=== PATIENT | female | born 1960 | race African-American/Black ===

== ENCOUNTER 2021-03-10 15:52 | Outpatient (REF) | payer OTHER, SELFPAY ==
--- NOTE | ~2021-03-10 | US_ITS ---
EXAMINATION: PELVIC ULTRASOUND CLINICAL INFORMATION: Pelvic pain COMPARISON: None TECHNIQUE: Transabdominal pelvic ultrasound. FINDINGS: The uterus is retroverted and measures 6.2 x 2.9 x 5 cm in dimension. There is a 4.1 x 2.8 x 3.6 cm calcified central uterine lesion probably representing a fibroid. This is slightly decreased in size from 4.4 x 3.6 x 4.4 cm on previous exam. There is a 1 x 0.7 x 1 cm hypoechoic lesion in the right anterior uterine body suggestive of a fibroid that is stable. The larger fibroid obscures the endometrium. The visualized endometrium is slightly thickened measuring 0.6 cm. The cervix is normal appearing. The right ovary is normal-appearing and measures 2.1 x 1.3 x 1.5 cm. The left ovary measures 2.7 x 1.1 x 1.5 cm. There is a small calcification in the left ovary. There is no fluid in the pelvis. US/US pelvic and transvaginal IMPRESSION: Uterine fibroids. The larger central fibroid obscures the endometrium. The visualized endometrium appears slightly thickened for a postmenopausal patient measuring 0.6 cm. Possible small calcification in the left ovary otherwise the ovaries are normal-appearing.
== END 2021-03-10 15:53 | disposition home or self-care (01) ==
LOC: HO.US 15:52
PROVIDERS: Visit Provider Advanced Practice Midwife
DX: R10.2 Pelvic and perineal pain (principal)
CPT/HCPCS: 76830; 76856

== ENCOUNTER 2021-07-28 10:35 | Outpatient (REF) | payer OTHER, SELFPAY ==
--- NOTE | ~2021-07-28 | MM_ITS ---
EXAMINATION: MM DIAGNOSTIC DIGITAL BREAST TOMOSYNTHESIS, BILATERAL US DIAGNOSTIC ULTRASOUND BREAST, LEFT CLINICAL INFORMATION: Due for yearly. Patient notes unilateral left nipple discharge for many decades (since teenage years), only present as a white drop with squeezing. No spontaneous discharge. No palpable mass. The lifetime risk of breast cancer based on the Tyrer-Cuzick Model is 7%. COMPARISON: Mammography: 08/03/2017, 05/29/2016, 02/04/2015 TECHNIQUE: Digital breast tomosynthesis is performed in both the craniocaudal and mediolateral oblique views along with computer-aided detection (CAD). Synthesized 2D images are generated from the tomosynthesis. Ultrasound left breast is targeted to the retroareolar and periareolar region. Grayscale imaging and color Doppler are performed without and with harmonics. FINDINGS: There are scattered areas of fibroglandular density (ACR BI-RADS breast composition Category b). Parenchymal pattern is similar to prior exams. There is no developing density or interval mass or architectural abnormality. There is no focal interval duct ectasia. No abnormal calcifications. The axilla and skin contours are unremarkable. No significant changes. Ultrasound left breast demonstrates no cystic or solid mass, architectural abnormality, or focal duct ectasia. No skin thickening or edema tracking in soft tissue planes. No hyperemia. Results are discussed with the patient at time of visit. Imaging today is unremarkable. The left discharge is unlikely to represent a significant finding given the multi-decade chronicity and scant amount, white drop only present with intentional squeezing. MM/MM tomosynthesis diagnostic BI IMPRESSION: 1. No mammographic evidence of malignancy. 2. Unremarkable targeted left breast ultrasound. ASSESSMENT: BI-RADS 1: Negative RECOMMENDATION: 1. Patient should be managed based on the clinical impression. If clinically indicated, further evaluation may be considered with surgical consult. 2. Otherwise, routine annual screening mammography. This patient's information was entered into a reminder system with a target due date for their next mammogram.
== END 2021-07-28 10:36 | disposition home or self-care (01) ==
LOC: HO.MAMMO 10:35
PROVIDERS: Visit Provider Advanced Practice Midwife
DX: O92.6 Galactorrhea (principal)
CPT/HCPCS: 76642; 77062; 77066

== ENCOUNTER 2022-07-28 12:25 | Emergency (ER) | payer OTHER, SELFPAY ==
--- NOTE | ~2022-07-28 | XR_ITS ---
EXAMINATION: XR KNEE, LEFT CLINICAL INFORMATION: Pain and swelling left knee. COMPARISON: None TECHNIQUE: Four views of the left knee. FINDINGS: There is mild patella lorena with an Insall-Salvati ratio of 1.4, at the upper limits of normal. There is prepatellar soft tissue swelling. Bones and soft tissues are otherwise normal. No fracture or joint effusion. Joint spaces are well maintained. No abnormal soft tissue calcification. XR/XR knee LT 4V IMPRESSION: Mild patella lorena and prepatellar soft tissue swelling.
--- NOTE | 2022-07-28 12:35 | ED.LOWEXIN ---
HPI - Extremity Injury (Lower) General Chief Complaint: Extremity Problem Stated Complaint: KNEE PAIN Time Seen by Provider: 07/28/22 12:35 Source: patient and EMS Limitations: no limitations History of Present Illness HPI Narrative: 61 yo female presents to the ER from home via EMS with complaints of a painful and swollen left knee that started on the night of 07/25. She states it started as a slight discomfort and it has worsened each day. She denies any injury or trauma. Today she woke up and was unable to put any weight on her left leg or bend it due to the pain and swelling. She states it is warm but not red. No history of gout. No history of current IVDA. No fever or chills. MD complaint: knee injury Onset (ago): day(s) (4) Injury: Left: knee Type of Injury: unknown Place: home Severity: severe Severity scale (1-10): 10 Relieving factors: immobilization and rest Exacerbating factors: weight bearing, movement and palpation Associated symptoms: swelling and unable to bear weight Other symptoms: none Related Data Previous Rx's Medication Instructions Recorded oxycodone 5 mg tablet 5 mg PO Q6H PRN severe pain (scale 07/28/22 score 7-10) #8 tabs prednisone 50 mg tablet 50 mg PO DAILY #6 tabs 07/28/22 Allergies Allergy/AdvReac Type Severity Reaction Status Date / Time No Known Allergies Allergy Unverified 08/15/20 15:43 Review of Systems Review of Systems: Constitutional: No Fever, No Chills ENT/Mouth: No sore throat, No Rhinorrhea, No Swallowing Difficulty Cardiovascular: No Chest Pain, No SOB, No Orthopnea, + Edema Respiratory: No Cough, No Sputum, No Wheezing, No dyspnea Gastrointestinal: No Nausea, No Vomiting, No abdominal Pain Musculoskeletal: + joint pain, No Myalgias Skin: No Skin Lesions, No rash Neuro: No Weakness, No Numbness, No Dizziness, No Headache Psych: + Anxiety/Panic, No Depression Heme/Lymph: No Bruising, No Lymphadenopathy PMFSH Social History Social History Advance Directives: No Advance Directives Information Provided: Yes Physical Exam Vital Signs: Vital Signs: Last Vital Signs Temp 98.7 F 07/28/22 16:31 Pulse 91 07/28/22 16:31 Resp 18 07/28/22 16:31 BP 148/96 H 07/28/22 16:31 Pulse Ox 98 07/28/22 16:31 O2 Del Method 07/28/22 16:31 BMI result Body Mass Index 32.1 Appearance: Alert. Oriented X3. Patient appears uncomfortable. HEENT: normal inspection CVS: Normal heart rate and rhythm. Pulses normal. Respiratory: No respiratory distress. Skin: Skin warm and dry. Normal skin color. Normal skin turgor. No rashes. Extremities: Left knee with moderate generalized swelling, with diffuse tenderness. Joint is warm to touch but not hot. No erythema. Knee held in extension, extreme pain with any effort in flexing. Neurovascularly intact distally. Neuro: Oriented X 3. No motor deficit. No sensory deficit. Unable to test gait due to pain Course Course Course Narrative: 61-year-old female with history of HIV on current HAART (reported CD4 in the 300s and undetectable viral load) who presents to the ER with 4 days of atraumatic left-sided knee pain and swelling. Unable to ambulate. Unable to flex. Concern for possible joint infection, possible gout. X-ray and lab workup is pending. Pain meds ordered, will reassess. Reevaluation(s) Reevaluation #1: Lab workup is showing a WBC of 5.5. Her inflammatory markers are mildly elevated. Uric acid 8. X-ray today is not showing any evidence of a joint effusion. Dr. Owen ultrasound of the knee at the bedside without any visible pocket of fluid to drain. She is recommending orthopedic evaluation at the bedside. Orthopedic PA has been texted, awaiting response. Reevaluation #2: Ortho came to the bedside right away and evaluated the patient. The left knee was able to be aspirated with a small amount of clear yellow fluid expressed. Does not appear to be infected. Orthopedics recommending compression and steroids for probable bursitis. CAR wrap applied and crutches provided. Patient is stable for d/c home with pain control and steroids. She will follow up with Orthopedics in 2-3 days. MDM - Extremity Injury (Lower) Lab Data Result diagrams: 07/28/22 13:00 07/28/22 13:00 Labs: Lab Results 07/28/22 07/28/22 07/28/22 Range/Units 13:00 13:00 13:00 WBC 5.5 (4.8-10.8) X10*3/uL RBC 4.53 (4.20-5.50) X10*6/uL Hgb 13.6 (12.0-16.0) g/dl Hct 41.1 (37.0-47.0) % MCV 90.7 (80.0-98.0) fL MCH 30.0 (27.0-33.0) pg MCHC 33.1 (31.0-35.0) g/dl RDW 15.8 (11.0-16.0) % Plt Count 78 L (160-400) X10*3/uL MPV 10.1 (9.4-12.3) fL Immature Gran % (Auto) 0.4 (0.0-0.4) % Neut % (Auto) 75.9 H (45-73) % Lymph % (Auto) 15.9 L (20-40) % [place] % (Auto) 7.1 (2-11) % Eos % (Auto) 0.5 (0-4) % Baso % (Auto) 0.2 (0-2) % Lymph # (Auto) 0.9 L (1.2-4.9) X10*3/uL [place] # (Auto) 0.4 (0.1-1.2) X10*3/uL Eos # (Auto) 0.0 (0.0-0.4) X10*3/uL Baso # (Auto) 0.0 (0.0-0.2) X10*3/uL Abs Immat Gran (auto) 0.02 (0.00-0.03) X10*3/uL Absolute Neuts (auto) 4.2 (2.0-8.3) x10*3/uL Absolute Nucleated RBC 0.000 (0.0-0.012) X10*3/uL Nucleated RBC % (auto) 0.0 (0.0-0.2) /100WBC ESR 59 H (0-20) MM/HR PT (10.0-13.1) SEC INR (0.9-1.1) APTT (26.0-36.4) SEC Sodium 140 (135-145) mmol/L Potassium 3.5 (3.3-5.1) mmol/L Chloride 102 (96-108) mmol/L Carbon Dioxide 26 (22-29) mmol/L Anion Gap 16 (12-20) BUN 23 H (9-16) mg/dL Creatinine 1.08 (0.5-1.4) mg/dL Estim Creat Clear Calc 57.0 Estimated GFR 52 Random Glucose 133 H (60-115) mg/dL Uric Acid 8.0 H (2.4-5.7) mg/dL Calcium 9.4 (8.4-10.2) mg/dL Total Bilirubin 0.5 (0.0-1.0) mg/dL Direct Bilirubin 0.2 (0.0-0.5) mg/dL AST 30 (5-31) U/L ALT 63 H (0-31) U/L Alkaline Phosphatase 96 (39-117) U/L C-Reactive Protein 3.45 H (< or = 0.50) mg/dL Total Protein 8.9 H (6.5-8.0) g/dL Albumin 4.1 (3.5-5.0) g/dL 07/28/22 Range/Units 13:00 WBC (4.8-10.8) X10*3/uL RBC (4.20-5.50) X10*6/uL Hgb (12.0-16.0) g/dl Hct (37.0-47.0) % MCV (80.0-98.0) fL MCH (27.0-33.0) pg MCHC (31.0-35.0) g/dl RDW (11.0-16.0) % Plt Count (160-400) X10*3/uL MPV (9.4-12.3) fL Immature Gran % (Auto) (0.0-0.4) % Neut % (Auto) (45-73) % Lymph % (Auto) (20-40) % [place] % (Auto) (2-11) % Eos % (Auto) (0-4) % Baso % (Auto) (0-2) % Lymph # (Auto) (1.2-4.9) X10*3/uL [place] # (Auto) (0.1-1.2) X10*3/uL Eos # (Auto) (0.0-0.4) X10*3/uL Baso # (Auto) (0.0-0.2) X10*3/uL Abs Immat Gran (auto) (0.00-0.03) X10*3/uL Absolute Neuts (auto) (2.0-8.3) x10*3/uL Absolute Nucleated RBC (0.0-0.012) X10*3/uL Nucleated RBC % (auto) (0.0-0.2) /100WBC ESR (0-20) MM/HR PT 10.7 (10.0-13.1) SEC INR 0.9 (0.9-1.1) APTT 30.1 (26.0-36.4) SEC Sodium (135-145) mmol/L Potassium (3.3-5.1) mmol/L Chloride (96-108) mmol/L Carbon Dioxide (22-29) mmol/L Anion Gap (12-20) BUN (9-16) mg/dL Creatinine (0.5-1.4) mg/dL Estim Creat Clear Calc Estimated GFR Random Glucose (60-115) mg/dL Uric Acid (2.4-5.7) mg/dL Calcium (8.4-10.2) mg/dL Total Bilirubin (0.0-1.0) mg/dL Direct Bilirubin (0.0-0.5) mg/dL AST (5-31) U/L ALT (0-31) U/L Alkaline Phosphatase (39-117) U/L C-Reactive Protein (< or = 0.50) mg/dL Total Protein (6.5-8.0) g/dL Albumin (3.5-5.0) g/dL Procedures Orthopedic Splinting/Casting Injury #1: Side: left Lower Extremity Injury Location: knee Lower Extremity Immobilizer: Car wrap Other Orthopedic Equipment: crutches Discharge Plan Discharge Clinical Impression: Bursitis of left knee Patient Disposition: Home, Self-Care Instructions: Knee Bursitis (ED) Additional Instructions: Your lab workup and your joint fluid is not consistent with infection. The orthopedic provider is recommending steroids, compression of the knee with a Car wrap, weight-bearing as tolerated and pain control. Recommend following back up in the office with them in a few days. Name and number below. Call for an appointment. Elevate and ice the knee whenever possible. If you develop new or worsening symptoms call 911 or come back to the ER for further evaluation. Prescriptions: New oxycodone 5 mg tablet 5 mg PO Q6H PRN (Reason: severe pain (scale score 7-10)) Qty: 8 0RF Rx Instructions: Partial Fill upon patient request. prednisone 50 mg tablet 50 mg PO DAILY Qty: 6 0RF Referrals: Seble Worley PA-C [Physician Software Development Specialist] - Interventions: ED Discharge Assessment Last Done: 07/28/22 16:46 Discharge Date/Time: 07/28/22 16:46
[2022-07-28 12:47] VITALS: BP 140/108; BP 167/80; PULSE 84; RESP 19; TEMP 37; O2SAT 100; O2SAT 96; BMI 32.1
[2022-07-28] MEDS: oxyCODONE HCl Immed Release 5 MG TABLET PO ×2 (12:55→16:33)
[2022-07-28 13:09] LABS: MANUAL DIFF FLAG NO
[2022-07-28 13:14] LABS: Basophils Percent Auto 0.2 % (0-2); Eosinophils Percent Auto 0.5 % (0-4); Hematocrit 41.1 % (37.0-47.0); Hemoglobin 13.6 g/dl (12.0-16.0); INTERNATIONAL NORM RATIO 0.9 (0.9-1.1); Imm Gran Abs Auto 0.02 X10*3/uL (0.00-0.03); Imm Gran Pct Auto 0.4 % (0.0-0.4); Lymphocytes Absolute Auto 0.9 X10*3/uL (1.2-4.9); Lymphocytes Percent Auto 15.9 % (20-40); Mean Corpuscular HGB Conc 33.1 g/dl (31.0-35.0); Mean Corpuscular Volume 90.7 fL (80.0-98.0); Monocytes Absolute Auto 0.4 X10*3/uL (0.1-1.2); Monocytes Percent Auto 7.1 % (2-11); Neutrophils Absolute Auto 4.2 x10*3/uL (2.0-8.3); Neutrophils Percent Auto 75.9 % (45-73); Prothrombin Time 10.7 SEC (10.0-13.1); Red Blood Count 4.53 X10*6/uL (4.20-5.50); Red Cell Distribution Width 15.8 % (11.0-16.0); White Blood Count 5.5 X10*3/uL (4.8-10.8)
[2022-07-28 13:17] LABS: Partial Thromboplastin Time 30.1 SEC (26.0-36.4)
[2022-07-28 13:30] LABS: Alanine Aminotransferase 63 U/L (0-31); Albumin Level 4.1 g/dL (3.5-5.0); Alkaline Phosphatase 96 U/L (39-117); Anion Gap 16 (12-20); Aspartate Amino Transferase 30 U/L (5-31); Bilirubin Direct 0.2 mg/dL (0.0-0.5); Bilirubin Total 0.5 mg/dL (0.0-1.0); Blood Urea Nitrogen 23 mg/dL (9-16); C Reactive Protein 3.45 mg/dL (< or = 0.50); Calcium 9.4 mg/dL (8.4-10.2); Carbon Dioxide 26 mmol/L (22-29); Chloride 102 mmol/L (96-108); Estimated Glomerular Filt Rate 52; Glucose Random 133 mg/dL (60-115); Potassium 3.5 mmol/L (3.3-5.1); Sodium 140 mmol/L (135-145); Total Protein 8.9 g/dL (6.5-8.0)
[2022-07-28 13:36] LABS: Mean Platelet Volume 10.1 fL (9.4-12.3); Platelet Count 78 X10*3/uL (160-400)
[2022-07-28 13:50] LABS: Erythrocyte Sedimentation Rate 59 MM/HR (0-20)
[2022-07-28 14:14] VITALS: BP 143/75; PULSE 82; RESP 17; TEMP 36.9; O2SAT 99
[2022-07-28] MEDS: Lidocaine HCl 1 % MPF 2 ML VIAL 5 ML SUBCUT (14:16)
[2022-07-28 16:31] VITALS: BP 148/96; PULSE 91; RESP 18; TEMP 37.1; O2SAT 98
[2022-07-28] MEDS: Acetaminophen 325 MG TABLET 975 MG PO (16:33)
[2022-07-28] MEDS: predniSONE 10 MG TABLET 50 MG PO (16:33)
== END 2022-07-28 16:46 | disposition home or self-care (01) ==
PROVIDERS: Physician Assistant; Emergency Provider Emergency Medicine; PCP Nurse Practitioner Primary Care
DX: M70.52 Other bursitis of knee, left knee (principal); Y93.9 Activity, unspecified; M25.562 Pain in left knee; B20 Human immunodeficiency virus [HIV] disease
CPT/HCPCS: 20610; 36415; 73564; 80048; 80076; 84550; 85025; 85610; 85652; 85730; 86140; 99283; 99285

== ENCOUNTER 2023-03-24 10:01 | Outpatient (REF) | payer OTHER, SELFPAY ==
--- NOTE | ~2023-03-24 | XR_ITS ---
EXAMINATION: XR ANKLE, LEFT CLINICAL INFORMATION: Left ankle pain. COMPARISON: None available. TECHNIQUE: AP, lateral, and mortise views of the left ankle. An indicator arrow points to the lateral malleolus. FINDINGS: The ankle joint and mortise are intact. There is no acute fracture or dislocation. The tarsal bones are normally aligned. There is a small plantar calcaneal spur. Mild soft tissue swelling is seen. XR/XR ankle LT min 3V IMPRESSION: Mild soft tissue swelling without acute underlying osseous abnormality.
== END 2023-03-24 10:02 | disposition home or self-care (01) ==
LOC: HO.XRAY 10:01
PROVIDERS: PCP Nurse Practitioner Primary Care; Visit Provider Emergency Medicine
DX: M25.572 Pain in left ankle and joints of left foot (principal)
CPT/HCPCS: 73610

== ENCOUNTER 2023-11-09 10:28 | Outpatient (REF) | payer OTHER, SELFPAY ==
[2023-11-09 11:23] LABS: MANUAL DIFF FLAG NO
[2023-11-09 11:44] LABS: Basophils Percent Auto 0.2 % (0-2); Eosinophils Absolute Auto 0.1 X10*3/uL (0.0-0.4); Eosinophils Percent Auto 1.2 % (0-4); Hematocrit 38.7 % (37.0-47.0); Hemoglobin 12.6 g/dl (12.0-16.0); Imm Gran Abs Auto 0.02 X10*3/uL (0.00-0.03); Imm Gran Pct Auto 0.4 % (0.0-0.4); Lymphocytes Absolute Auto 1.4 X10*3/uL (1.2-4.9); Mean Corpuscular HGB Conc 32.6 g/dl (31.0-35.0); Mean Corpuscular Hemoglobin 28.2 pg (27.0-33.0); Mean Corpuscular Volume 86.6 fL (80.0-98.0); Mean Platelet Volume 12.5 fL (9.4-12.3); Monocytes Absolute Auto 0.4 X10*3/uL (0.1-1.2); Monocytes Percent Auto 8.6 % (2-11); Neutrophils Percent Auto 61.6 % (45-73); Platelet Count 148 X10*3/uL (160-400); Red Blood Count 4.47 X10*6/uL (4.20-5.50); Red Cell Distribution Width 16.5 % (11.0-16.0); White Blood Count 4.9 X10*3/uL (4.8-10.8)
[2023-11-09 12:10] LABS: Alanine Aminotransferase 47 U/L (0-31); Albumin Level 4.1 g/dL (3.5-5.0); Alkaline Phosphatase 119 U/L (39-117); Anion Gap 15 (12-20); Aspartate Amino Transferase 36 U/L (5-31); Bilirubin Total 0.4 mg/dL (0.0-1.0); Blood Urea Nitrogen 26 mg/dL (9-16); Carbon Dioxide 26 mmol/L (22-29); Chloride 102 mmol/L (96-108); Estimated Glomerular Filt Rate 28; Glucose Random 106 mg/dL (60-115); Potassium 3.8 mmol/L (3.3-5.1); Sodium 139 mmol/L (135-145); Total Protein 9.4 g/dL (6.5-8.0)
[2023-11-10 10:49] LABS: Absolute CD3 Count 1265 cells/uL (840-3060); Absolute CD4 Count 323 cells/uL (490-1740); Absolute CD8 Count 918 cells/uL (180-1170); Absolute Lymphocytes 1388 cells/uL (850-3900); CD4 CD8 Ratio 0.35 (0.86-5.00); Percent CD3 Cells 91 % (57-85); Percent CD4 Cells 23 % (30-61); Percent CD8 Cells 66 % (12-42)
[2023-11-11 15:27] LABS: HIV RNA PCR Qn Copies NOT DETECTED copies/mL (NOT DETECTED); HIV RNA PCR Qn Log Copies NOT DETECTED (NOT DETECTED)
== END 2023-11-09 10:29 | disposition home or self-care (01) ==
LOC: HO.HHCL 10:28
PROVIDERS: Visit Provider Student in an Organized Health Care Education/Training Program
DX: B20 Human immunodeficiency virus [HIV] disease (principal)
CPT/HCPCS: 36415; 80053; 85025; 86359; 86360; 87536

== ENCOUNTER 2024-02-29 10:22 | Outpatient (REF) | payer OTHER, SELFPAY ==
--- NOTE | ~2024-02-29 | XR_ITS ---
EXAMINATION: XR ANKLE, LEFT CLINICAL INFORMATION: Pain and swelling. COMPARISON: None available. TECHNIQUE: AP, lateral, and mortise views of the left ankle. FINDINGS: There is bimalleolar soft tissue swelling. No visible acute fracture, dislocation or subluxation seen. The ankle mortise and subtalar joints are normal. There is a small calcaneal heel enthesophyte. XR/XR ankle LT min 3V IMPRESSION: Bimalleolar soft tissue swelling. No visible acute fracture or dislocation seen. Small calcaneal heel enthesophyte.
== END 2024-02-29 10:23 | disposition home or self-care (01) ==
LOC: HO.HHCX 10:22
PROVIDERS: Visit Provider Nurse Practitioner Family
DX: M25.572 Pain in left ankle and joints of left foot (principal)
CPT/HCPCS: 73610

== ENCOUNTER 2024-03-17 10:05 | Outpatient (AMB) | payer OTHER, SELFPAY ==
--- NOTE | 2024-03-17 10:27 | MHC.OFFVIS ---
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 Patient reports bilateral ankle pain with left ankle being the worse. States an injury to her left foot about 3 years ago and has had pain since then however the past 5 months her pain has gotten worse. Currently she has constant pain, difficulty with walking and stair use. Finds very little to no relief with taking Tylenol. 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 She states she has bilateral ankle pain which is worse on her left ankle. She reports she had an injury to her left foot about 3 years ago and had pain since then however her pain has been worse for the past 5 months. She currently states she has constant pain in her ankle which makes her difficult to ambulate or use stairs. She finds minimal relief with Tylenol. [facility] Social History (Updated 03/17/24 @ 10:[address] [facility]) Patient Tobacco Use Status: Current everyday Tobacco user Current occupational status: unemployed Review of Systems Const All systems reviewed & are unremarkable except as noted in HPI and below Physical Exam Vital Signs: BMI result Body Mass Index 33.6 Const General: cooperative, healthy appearing, comfortable, no acute distress, well developed and alert Orientation/consciousness: patient oriented x3 HEENT Head: Yes normal to inspection, Yes normocephalic and Yes atraumatic Eyes General: appearance normal, both eyes and all related structures Resp Effort & Inspection: normal respiratory effort and able to speak in complete sentences Cardio Rate: regular rate Peripheral pulses: Peripheral pulses 2+ throughout GI Palpation (GI): Soft to palpation Skin Lesions: no lesions Rashes: no rashes Neuro General: patient oriented x3 Extrem Other: Left foot: Normal to inspection. She does have a scar over the lateral aspect of the foot from a childhood injury. 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 She has no significant localized swelling. Mild tenderness to palpation over dorsum of mid foot. NVI. Results Reviewed Results Reviewed: X-rays of the left foot obtained in the office today is negative for any acute fracture or dislocations mild oa of the mid foot. Assessment & Plan Assessment & Plan (1) Osteoarthritis of left foot: Code(s): M19.072 - Primary osteoarthritis, left ankle and foot Category: Medical Plan I recommend she use her lace up ankle brace for stability of the foot and ankle and take Tylenol or anti-inflammatories to help with discomfort. She will modify activities as needed as no surgical intervention is warranted. She will see me back as needed. Orders: Referrals Podiatry Referral M79.671 - Pain in right foot, M79.672 - Pain in left foot Patient Instructions: Scribed for Seble Worley PA-C, by Cyrus Loco medical technologist chief, on 03/17/2024 at 10:30 AM SABINA. ISeble PA-C, have personally reviewed and agree with the information entered by the scribe.
[2024-03-17 10:32] VITALS: BMI 33.6
== END 2024-03-17 11:16 | disposition home or self-care (01) ==
PROVIDERS: PCP Nurse Practitioner Primary Care; Visit Provider Physician Assistant
DX: M19.072 Primary osteoarthritis, left ankle and foot (principal)
CPT/HCPCS: 99203

== ENCOUNTER → 2024-03-17 10:05 | Outpatient (BNVA) | payer OTHER, SELFPAY | PROVIDERS: PCP Nurse Practitioner Primary Care; Visit Provider Physician Assistant | DX: M19.072 Primary osteoarthritis, left ankle and foot (principal) | CPT/HCPCS: 99202 ==

== ENCOUNTER 2024-08-02 08:48 | Outpatient (REF) | payer OTHER, SELFPAY ==
[2024-08-02 11:02] LABS: MANUAL DIFF FLAG NO
[2024-08-02 11:17] LABS: Basophils Percent Auto 0.3 % (0-2); Eosinophils Absolute Auto 0.1 X10*3/uL (0.0-0.4); Eosinophils Percent Auto 1.3 % (0-4); Hematocrit 41.1 % (37.0-47.0); Hemoglobin 13.7 g/dl (12.0-16.0); Imm Gran Abs Auto 0.02 X10*3/uL (0.00-0.03); Imm Gran Pct Auto 0.5 % (0.0-0.4); Lymphocytes Absolute Auto 1.8 X10*3/uL (1.2-4.9); Lymphocytes Percent Auto 45.9 % (20-40); Mean Corpuscular HGB Conc 33.3 g/dl (31.0-35.0); Mean Corpuscular Hemoglobin 29.5 pg (27.0-33.0); Mean Corpuscular Volume 88.4 fL (80.0-98.0); Mean Platelet Volume 11.7 fL (9.4-12.3); Monocytes Absolute Auto 0.4 X10*3/uL (0.1-1.2); Monocytes Percent Auto 10.1 % (2-11); Neutrophils Absolute Auto 1.6 x10*3/uL (2.0-8.3); Neutrophils Percent Auto 41.9 % (45-73); Platelet Count 139 X10*3/uL (160-400); Red Blood Count 4.65 X10*6/uL (4.20-5.50); Red Cell Distribution Width 16.5 % (11.0-16.0); White Blood Count 3.9 X10*3/uL (4.8-10.8)
[2024-08-02 11:45] LABS: Alanine Aminotransferase 66 U/L (0-31); Albumin Level 3.9 g/dL (3.5-5.0); Alkaline Phosphatase 94 U/L (39-117); Anion Gap 16 (12-20); Aspartate Amino Transferase 48 U/L (5-31); Bilirubin Total 0.4 mg/dL (0.0-1.0); Blood Urea Nitrogen 44 mg/dL (9-16); Calcium 9.8 mg/dL (8.4-10.2); Carbon Dioxide 25 mmol/L (22-29); Chloride 104 mmol/L (96-108); Estimated Glomerular Filt Rate 26; Glucose Random 127 mg/dL (60-115); Potassium 3.7 mmol/L (3.3-5.1); Sodium 141 mmol/L (135-145); Total Protein 8.7 g/dL (6.5-8.0); ~HepC Num1 0.15 S/CO (0.00-0.79); ~Hepatitis C Antibody Nonreactive (Nonreactive)
[2024-08-02 11:53] LABS: Syphilis Screen Nonreactive (Nonreactive)
[2024-08-03 13:14] LABS: HIV RNA PCR Qn Copies <20 DETECTED copies/mL (NOT DETECTED); HIV RNA PCR Qn Log Copies <1.30 DETECTED (NOT DETECTED)
[2024-08-05 15:53] LABS: Absolute CD3 Count 1557 cells/uL (840-3060); Absolute CD4 Count 403 cells/uL (490-1740); Absolute CD8 Count 1113 cells/uL (180-1170); Absolute Lymphocytes 1628 cells/uL (850-3900); CD4 CD8 Ratio 0.36 (0.86-5.00); Percent CD3 Cells 96 % (57-85); Percent CD4 Cells 25 % (30-61); Percent CD8 Cells 68 % (12-42)
== END 2024-08-02 08:49 | disposition home or self-care (01) ==
LOC: HO.HHCL 08:48
PROVIDERS: Referring Provider Student in an Organized Health Care Education/Training Program; Visit Provider Nurse Practitioner Primary Care
DX: B20 Human immunodeficiency virus [HIV] disease (principal)
CPT/HCPCS: 36415; 80053; 85025; 86359; 86360; 86780; 86803; 87536

== ENCOUNTER 2025-02-06 13:54 | Outpatient (REF) | payer OTHER, SELFPAY ==
[2025-02-06 16:55] LABS: PLT CLUMP 1; SCAN SMEAR FLAG 1
--- OUTSIDE RECORDS SUMMARY | 2025-02-06 16:57 | XMS_ITS | Encounter Summary ---
Author Organization [facility], Address [address] [place] [address] Phone Care Team Providers Care Post Hole Digger Name Role Phone Kavita Garcia MD Primary Care Provider Unav ailable Encounter Details Date Type Department Care Team (Late st Contact Info) Description 09/09/2022 Documentation Only [facility], [address] [place] [id number] Darryl Durand MD [address] [place] [address] Social History Tobacco Use Types Packs/Day Years Used Date Smoking Tobacco: Every Day Cigarettes Alcohol Use Standard Drinks/Week Comments Yes 0 (1 standard drink = 0.6 oz pure alcohol) Alcoholic Drinks/day: 1-2 drinks per day Comments Unknown Sex and Gender Information Value Date Recorded Sex Assigned at Not on file Legal Sex Female 4:33 PM EST Gender Identity Not on file Sexual Orientation Not on file documented as of this encounter Plan of Treatment Not on file documented as of this encounter Visit Diagnoses Not on filedocumented in this encounter Care Teams Post Hole Digger Relationship Specialty Start Date End Date Kavita Garcia MD PCP - General 10/03/19 documented as of this encounter
--- OUTSIDE RECORDS SUMMARY | 2025-02-06 16:57 | XMS_ITS | Clinical Summary ---
Author Organization [facility], Address [address] [place] [address] [place] [address] Phone Care Team Providers Care Logging Equipment Operator Name Role Phone Kavita Garcia MD Primary Care Provider Unav ailable Allergies No known active allergies Medications Bictegravir-Emt ricitab-Tenofov (Biktarvy) 50-200-25 MG tablet Take 1 tablet by mouth at bed time Active ergocalciferol (VITAMIN D-2) 1.25 MG (33255 UT) capsule Take 1 capsule by mouth 1 (one) time per week Active Active Problems Problem Noted Date Diagnosed Date Flank pain 09/16/2021 HIV positive 03/21/2020 Stage 3a chronic kidney disease 03/19/2020 Overview (12/02/2020): Update for Diagnosis Load Resolved Problems Problem Noted Date Diagnosed Date Resolved Date Thrombocytopenic disorder 03/19/2020 Family History Relation Status Comments Father Unknown Mother Unknown Social History Tobacco Use Types Packs/Day Years [...] on file Sexual Orientation Not on file Last Filed Vital Signs Vital Sign Reading Time Taken Comments Blood Pressure 122/65 07/17/2019 12:00 PM EDT Pulse 74 07/17/2019 12:00 PM EDT Temperature - - Respiratory Rate 16 07/17/2019 12:00 PM EDT Oxygen Saturation - - Inhaled Oxygen Concentration - - Weight 82.1 kg (181 lb) 07/17/2019 12:00 PM EDT Height 165.1 cm (5' 5 ) 07/17/2019 12:00 PM EDT Body Mass Index 30.12 07/17/2019 12:00 PM EDT Plan of Treatment Health Maintenance Due Date Last Done Comments Breast Cancer Screening 1962 Pneumococcal Vaccine: Pediat rics (0 to 5 Years) and At-Risk Patients (6 to 64 Years) (1 of 2 - PCV) 1968 Colorectal Cancer Screening: Annual FOBT 2011 Colorectal Cancer Screening: Colonoscopy 2011 Colorectal Cancer Screening: Sigmoidoscopy 2011 Influenza Vaccine (#1) 2024 Hepatitis B Vaccine Aged Out No longe r eligible based on patient's age to complete this topic Insurance [facility] [place] [id number] Care Teams Logging Equipment Operator Relationship Specialty Start Date End Date Kavita Garcia MD PCP - General 10/03/19
--- OUTSIDE RECORDS SUMMARY | 2025-02-06 16:57 | XMS_ITS | Clinical Summary ---
Author Organization [facility] it Address [address] [place] [address] Care Team Providers Care Skill Labor Name Role Phone Allison Ramírez SECURITY BUSINESS ANALYST Primary Care Provider Surgical History Surgery Date Site/Laterality Comments OTHER SURGICAL HISTORY PROCEDURE: DENIES PREVIOUS SURGERY Family History Medical History Relation Name Comments Other: hiv Brother 1 Other: mi Brother 2 Heart attack Father Diabetes Mother Hypertension Mother Stroke Mother Relation Name Status Comments Brother 1 Brother 2 Brother 3 Father Mother Alive Social History Tobacco Use Types Packs/Day Years Used Date Smoking Tobacco: Every Day Cigarettes Alcohol Use Standard Drinks/Week Comments Yes 3.3 (1 standard drink = 0.6 oz p ure alcohol) Comments Unknown Sex and Gender Information Value Date Recorded Sex Assigned at Not on file Legal Sex Female 2:46 AM EST Gender Identity Not on file Sexual Orientation Not on file Obstetrics History Plan of Treatment Health Maintenance Due Date Last Done Comments Breast Cancer Screening 1962 DTaP,Tdap,and Td Vaccines (1 - Tdap) 1981 Cervical Cancer Screening: P ap Smear 1983 Pneumococcal Vaccine: 50+ Years (2 of 2 - PCV) 2012 10/17/2008 Zoster Vaccines (1 of 2) 2012 COVID-19 Vaccine ( - 2023-2 5 season) 2024 Influenza Vaccine (#1) 2024 10/17/2008 RSV Immunization Patients 60 + Years Old (1 - 1-dose 75+ series) 2037 Hepatitis B Vaccines Completed 07/04/2003, 01/04/2003, 04/27/2002 Pneumococcal Vaccine: Pediatrics (0 to 5 Years) and At-Risk Patients (6 to 64 Years) Aged Out 10/17/2008 No longer eligible b ased on patient's age to complete this topic HIB Vaccines Aged Out No longer eligi ble based on patient's age to complete this topic HPV Vaccines Aged Out No longer eligi ble based on patient's age to complete this topic Hepatitis A Vaccines Aged Out No long er eligible based on patient's age to complete this topic IPV Vaccines Aged Out No longer eligi ble based on patient's age to complete this topic MMR Vaccines Aged Out No longer eligi ble based on patient's age to complete this topic Meningococcal ACWY Vaccine Aged Out N o longer eligible based on patient's age to complete this topic Meningococcal B Vacine Aged Out No lo nger eligible based on patient's age to complete this topic RSV Immunization Patients Under 20 months Aged Out No longer eligible b ased on patient's age to complete this topic Varicella Vaccines Aged Out No longer eligible based on patient's age to complete this topic Care Teams Skill Labor Relationship Specialty Start Date End Date Allison Ramírez NP [address] [place] [address] [place] [phone] PCP - General 03/21/24
[2025-02-06 17:09] LABS: Basophils Percent Auto 0.7 % (0-2); Eosinophils Percent Auto 0.9 % (0-4); Hematocrit 36.3 % (37.0-47.0); Hemoglobin 12.2 g/dl (12.0-16.0); Imm Gran Abs Auto 0.02 X10*3/uL (0.00-0.03); Imm Gran Pct Auto 0.5 % (0.0-0.4); Lymphocytes Percent Auto 46.6 % (20-40); Mean Corpuscular HGB Conc 33.6 g/dl (31.0-35.0); Mean Corpuscular Hemoglobin 29.3 pg (27.0-33.0); Mean Corpuscular Volume 87.1 fL (80.0-98.0); Mean Platelet Volume 10.5 fL (9.4-12.3); Monocytes Absolute Auto 0.5 X10*3/uL (0.1-1.2); Monocytes Percent Auto 11.1 % (2-11); Neutrophils Absolute Auto 1.7 x10*3/uL (2.0-8.3); Neutrophils Percent Auto 40.2 % (45-73); Platelet Count 122 X10*3/uL (160-400); Red Blood Count 4.17 X10*6/uL (4.20-5.50); Red Cell Distribution Width 17.3 % (11.0-16.0); White Blood Count 4.3 X10*3/uL (4.8-10.8)
[2025-02-06 17:11] LABS: MANUAL DIFF FLAG NO
[2025-02-06 17:23] LABS: Alanine Aminotransferase 88 U/L (0-31); Albumin Level 4.1 g/dL (3.5-5.0); Alkaline Phosphatase 96 U/L (39-117); Anion Gap 15 (12-20); Aspartate Amino Transferase 67 U/L (5-31); Bilirubin Total 0.2 mg/dL (0.0-1.0); Blood Urea Nitrogen 26 mg/dL (9-16); Calcium 9.5 mg/dL (8.4-10.2); Carbon Dioxide 23 mmol/L (22-29); Chloride 103 mmol/L (96-108); Estimated Glomerular Filt Rate 34; Glucose Random 97 mg/dL (60-115); Potassium 3.4 mmol/L (3.3-5.1); Sodium 138 mmol/L (135-145); Total Protein 9.5 g/dL (6.5-8.0)
[2025-02-08 14:57] LABS: HIV RNA PCR Qn Copies 250 copies/mL (NOT DETECTED)
[2025-02-10 16:59] LABS: Absolute CD3 Count 1850 cells/uL (840-3060); Absolute CD4 Count 398 cells/uL (490-1740); Absolute CD8 Count 1458 cells/uL (180-1170); Absolute Lymphocytes 1943 cells/uL (850-3900); CD4 CD8 Ratio 0.27 (0.86-5.00); Percent CD3 Cells 95 % (57-85); Percent CD4 Cells 20 % (30-61); Percent CD8 Cells 75 % (12-42)
== END 2025-02-06 13:55 | disposition home or self-care (01) ==
LOC: HO.HHCL 13:54
PROVIDERS: Visit Provider Internal Medicine
DX: Z21 Asymptomatic human immunodeficiency virus [HIV] infection status (principal)
CPT/HCPCS: 36415; 80053; 85025; 86359; 86360; 87536

== ENCOUNTER 2025-02-15 | Outpatient (REF) | payer OTHER, SELFPAY ==
[2025-02-21 14:19] LABS: HPV Genotype 16 Negative (Negative); HPV Genotype 18 Negative (Negative); HPV High Risk Negative (Negative)
--- OUTSIDE RECORDS SUMMARY | 2025-05-24 13:59 | XMS_ITS | Encounter Summary ---
Author Organization [facility] Address [address] [place] [address] Phone Care Team Providers Care Community Case Manager Name Role Phone Allison Ramírez COLLEGE ADVISOR Primary Care Provider [phone] Encounter Details Date Type Department Care Team (Late st Contact Info) Description 02/08/2025 Documentation Only [facility] [address] [place] [address] [place], [place] [address] [place] [address] Social History Tobacco Use Types [...] Visit [facility] [address] [place] [address] Darryl Durand MD [address] [place] [address] [place] [address] documented as of this encounter Visit Diagnoses Not on filedocumented in this encounter Care Teams Community Case Manager Relationship Specialty Start Date End Date Allison Ramírez NP [address] [place] [address] [id number] PCP - General Nurse Practitioner 02/08/25 documented as of this encounter
== END 2025-02-15 00:01 | disposition home or self-care (01) ==
LOC: HO.LNP
PROVIDERS: Visit Provider Advanced Practice Midwife
DX: R87.610 Atypical squamous cells of undetermined significance on cytologic smear of cervix (ASC-US) (principal); Z21 Asymptomatic human immunodeficiency virus [HIV] infection status
CPT/HCPCS: 87626; 88112; 88175

== ENCOUNTER 2025-02-15 12:31 | Outpatient (REF) | payer OTHER, SELFPAY ==
[2025-02-15 13:58] LABS: Cholesterol 199 mg/dL (<200); HDL Cholesterol 65 mg/dL (>40); LDL Cholesterol Calculated 105 mg/dL (<100); Triglycerides 145 mg/dL (<150)
[2025-02-15 14:09] LABS: TSH reflex Free T4 0.38 uIU/mL (0.32-4.0)
[2025-02-15 14:14] LABS: Vitamin B12 347 pg/mL (200-900)
[2025-02-17 14:44] LABS: RPR Rapid Plasma Reagin NON-REACTIVE (NON-REACTIVE)
== END 2025-02-15 12:32 | disposition home or self-care (01) ==
LOC: HO.HHCL 12:31
PROVIDERS: Visit Provider Nurse Practitioner Primary Care
DX: N18.4 Chronic kidney disease, stage 4 (severe) (principal); I10 Essential (primary) hypertension; R41.3 Other amnesia
CPT/HCPCS: 36415; 80061; 82043; 82570; 82607; 84443; 86592

== ENCOUNTER 2025-05-09 09:28 | Outpatient (REF) | payer OTHER, SELFPAY ==
--- NOTE | ~2025-05-09 | CT_ITS ---
CLINICAL HISTORY: Pt w longstanding HIV, etoh abuse, with new KHAN, worsening memory loss CT head with and without contrast Comparison: None Findings: No acute hemorrhage. No extra-axial fluid collection. Cavum septum pellucidum et vergae, a normal variant. Mild prominence of the ventricles and extra-axial spaces due to atrophy of the brain parenchyma. No hydrocephalus, mass-effect, or herniation. Catherine-white differentiation is maintained. There is mzpc-rz-nycuirhj patchy hypoattenuation of the periventricular and deep white matter. Age indeterminate lacunar infarction in the left thalamus measuring 5 mm (series 4, image 30 and series 5, image 53) No abnormal enhancement. No acute orbital pathology. No acute soft tissue abnormality. No fracture. The visualized paranasal sinuses are predominantly clear. The mastoid air cells are clear. 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 Atrophy can also be seen in the setting of alcohol abuse. Decreased attenuation in the white matter is commonly the sequela of chronic small-vessel ischemic disease. Consider further evaluation with brain MR. 5 mm lacunar infarction in the left thalamus, age indeterminate. This document has been electronically signed by: Nighat Oconnell MD on 05/09/2025 17:03:28
[2025-05-09] MEDS: iohexoL 350 MG/ML 100 ML INFUS..BTL IV (10:17)
--- OUTSIDE RECORDS SUMMARY | 2025-05-09 10:20 | XMS_ITS | Encounter Summary ---
Author Organization [facility] Address [address] [place] [address] Phone Care Team Providers Care Drilling Supervisor Name Role Phone Allison Ramírez PIPE FITTER MARINE Primary Care Provider [phone] Encounter Details Date Type Department Care Team (Late st Contact Info) Description 02/08/2025 Documentation Only [facility] [address] [place] [address] [place], [place] [address] [place] [address] Social History Tobacco Use Types Packs/Day Years [...] as of this encounter Plan of Treatment Upcoming Encounters Date Type Department Care Team (Late st Contact Info) Description 06/12/2025 3:15 PM EDT Office Visit [facility] [address] [place] [address] Darryl Durand MD [address] [place] [address] [place] [address] documented as of this encounter Visit Diagnoses Not on filedocumented in this encounter Care Teams Drilling Supervisor Relationship Specialty Start Date End Date Allison Ramírez NP [address] [place] [address] [id number] PCP - General Nurse Practitioner 02/08/25 documented as of this encounter
[2025-05-09 11:17] LABS: Creatinine POC 1.3 mg/dL (0.5-1.4); GFR POC 46
== END 2025-05-09 09:29 | disposition home or self-care (01) ==
LOC: HO.CT 09:28
PROVIDERS: PCP Nurse Practitioner Primary Care; Visit Provider Nurse Practitioner Primary Care
DX: R51.9 Headache, unspecified (principal); R41.3 Other amnesia; Z21 Asymptomatic human immunodeficiency virus [HIV] infection status
CPT/HCPCS: 70470; 82565; Q9967

== ENCOUNTER → 2025-05-09 09:30 | Outpatient (BNV) | payer OTHER, SELFPAY | PROVIDERS: PCP Nurse Practitioner Primary Care; Visit Provider Radiology Diagnostic Radiology | DX: G93.89 Other specified disorders of brain (principal); R90.82 White matter disease, unspecified; I63.81 Other cerebral infarction due to occlusion or stenosis of small artery | CPT/HCPCS: 70470 ==

== ENCOUNTER 2025-11-26 09:01 | Outpatient (REF) | payer OTHER, SELFPAY ==
--- OUTSIDE RECORDS SUMMARY | 2025-11-26 09:20 | XMS_ITS | Encounter Summary ---
Author Organization [facility] [place], Address [address] [place] [address] Phone Care Team Providers Care Electroencephalogram Technologist Name Role Phone Allison Ramírez NIGHT TIME BABYSITTER Primary Care Provider [phone] Encounter Details Date Type Department Care Team (Late st Contact Info) Description 09/09/2022 Documentation Only [facility] [place], [address] [place] [address] Darryl Durand MD [address] [place] [address] Social History Tobacco Use Types [...] on filedocumented in this encounter Care Teams Electroencephalogram Technologist Relationship Specialty Start Date End Date Allison Ramírez NP [address] [place] [address] PCP - General Nurse Practitioner 02/08/25 documented as of this encounter
--- OUTSIDE RECORDS SUMMARY | 2025-11-26 09:20 | XMS_ITS | Clinical Summary ---
Author Organization [facility] Address [address] [place] [address] Care Team Providers Care Livestock Agent Name Role Phone Allison Ramírez WEB MARKETING MANAGER Primary Care Provider [phone] Surgical History Surgery Date Site/Laterality Comments OTHER [...] on file Sexual Orientation Not on file Plan of Treatment Health Maintenance Due Date Last Done Comments Breast Cancer Screening 1962 DTaP,Tdap,and Td Vaccines (1 - Tdap) 1981 Cervical Cancer Screening: P ap Smear 1983 Pneumococcal Vaccine: 50+ Years (2 of 2 - PCV) 2012 10/17/2008 Zoster Vaccines (1 of 2) 2012 Depression Screening 11/29/2024 COVID-19 Vaccine (1 - 2024-2 6 season) 2025 Influenza Vaccine (#1) 2025 10/17/2008 RSV Immunization Adult Patients (1 - 1-dose 75+ series) 2037 Hepatitis B Vaccines Completed 07/04/2003, 01/04/2003, 04/27/2002 HIB Vaccines Aged Out No longer eligi [...] age to complete this topic Meningococcal B Vaccine Aged Out No l onger eligible based on patient's age to complete this topic RSV Immunization Patients Under 20 months Aged Out No longer eligible b ased on patient's age to complete this topic Varicella Vaccines Aged Out No longer eligible based on patient's age to complete this topic Care Teams Livestock Agent Relationship Specialty Start Date End Date Allison Ramírez NP [address] [place] [address] [place] [address] PCP - General 03/21/24
--- OUTSIDE RECORDS SUMMARY | 2025-11-26 09:20 | XMS_ITS | Encounter Summary ---
Author Organization [facility] [place], Address [address] [place] [address] Phone Care Team Providers Care Sheet Rock Taper Helper Name Role Phone Allison Ramírez PULP PLANT SUPERVISOR Primary Care Provider [phone] Encounter Details Date Type Department Care Team (Late st Contact Info) Description 02/08/2025 Documentation Only [facility] [place], [address] [place] [address] [place], [place] [address] [place] [address] Social History Tobacco Use Types [...] on filedocumented in this encounter Care Teams Sheet Rock Taper Helper Relationship Specialty Start Date End Date Allison Ramírez NP [address] [place] [address] PCP - General Nurse Practitioner 02/08/25 documented as of this encounter
--- OUTSIDE RECORDS SUMMARY | 2025-11-26 09:20 | XMS_ITS | Clinical Summary ---
Author Organization [facility] [place], Address [address] [place] [address] Phone Care Team Providers Care Helper Steel Fabrication Name Role Phone Allison Ramírze NP Primary Care Provider [phone] Allergies No known active allergies Medications Bictegravir-Emt ricitab-Tenofov (Biktarvy) 50-200-25 MG tablet Take 1 tablet by mouth at bed time Active ergocalciferol (VITAMIN D-2) 1.25 MG (77482 UT) capsule Take 1 capsule by mouth [...] Last Done Comments Breast Cancer Screening 1962 Colorectal Cancer Screening: Annual FOBT 2011 Colorectal Cancer Screening: Colonoscopy 2011 Colorectal Cancer Screening: Sigmoidoscopy 2011 Hepatitis B Vaccine (1 of 3 - Risk 3-dose series) 2022 10/30/2010, 07/04/2003, 01/04/2003, Additional history exists Pneumococcal Vaccine: 50+ Ye ars (4 of 4 - PCV20 or PCV21) 01/20/2023 01/20/2018, 08/16/2014, 10/30/2010, Additional history exists Influenza Vaccine (#1) 2025 4, 11/12/2023, 08/17/2019, Additional history exists Pneumococcal Vaccine: Peds ( 0 to 5 Years) and At-Risk Patients (6 to 49 Years) Discontinued 01/20/2018, 08/16/2014, 10/30/2010, Additional history exists Insurance [facility] One Care Dual SNP ([id number]) Care Teams Helper Steel Fabrication Relationship Specialty Start Date End Date Allison Ramírez NP [address] [place] [id number] PCP - General Nurse Practitioner 02/08/25
[2025-11-26 11:14] LABS: MANUAL DIFF FLAG NO
[2025-11-26 11:16] LABS: Hematocrit 39.5 % (37.0-47.0); Hemoglobin 12.8 g/dl (12.0-16.0); Imm Gran Abs Auto 0.01 X10*3/uL (0.00-0.03); Imm Gran Pct Auto 0.2 % (0.0-0.4); Lymphocytes Absolute Auto 1.8 X10*3/uL (1.2-4.9); Mean Corpuscular HGB Conc 32.4 g/dl (31.0-35.0); Mean Corpuscular Hemoglobin 28.3 pg (27.0-33.0); Mean Corpuscular Volume 87.2 fL (80.0-98.0); NRBC Abs Auto 0.000 X10*3/uL (0.0-0.012); NRBC Pct Auto 0.0 /100WBC (0.0-0.2); Platelet Count 182 X10*3/uL (160-400); Red Blood Count 4.53 X10*6/uL (4.20-5.50); White Blood Count 4.2 X10*3/uL (4.8-10.8)
[2025-11-26 11:29] LABS: Alanine Aminotransferase 52 U/L (0-31); Albumin Level 4.1 g/dL (3.5-5.0); Alkaline Phosphatase 98 U/L (39-117); Anion Gap 12 (12-20); Aspartate Amino Transferase 54 U/L (5-31); Blood Urea Nitrogen 34 mg/dL (9-16); Calcium 9.8 mg/dL (8.4-10.2); Carbon Dioxide 29 mmol/L (22-29); Chloride 106 mmol/L (96-108); Cholesterol 220 mg/dL (<200); Estimated Glomerular Filt Rate 34; HDL Cholesterol 65 mg/dL (>40); Potassium 4.0 mmol/L (3.3-5.1); Sodium 143 mmol/L (135-145); Total Protein 9.0 g/dL (6.5-8.0); Triglycerides 148 mg/dL (<150)
[2025-11-26 11:51] LABS: HBS Num1 176.37 mIU/mL (0-7.99); HBc Num1 0.19 S/CO (0.00-0.79); HBsAGNum1 0.32 S/CO (0.00-0.99); Hepatitis B Surface Antigen Negative (Negative); ~HepC Num1 0.16 S/CO (0.00-0.79); ~Hepatitis B Surface Antibody REACTIVE (Nonreactive); ~Hepatitis C Antibody Nonreactive (Nonreactive)
[2025-11-26 13:11] LABS: Reflex LDLD? No
[2025-11-28 10:14] LABS: HIV RNA PCR Qn Copies 237 copies/mL (NOT DETECTED); HIV RNA PCR Qn Log Copies 2.37 (NOT DETECTED)
== END 2025-11-26 09:02 | disposition home or self-care (01) ==
LOC: HO.HHCL 09:01
PROVIDERS: PCP Nurse Practitioner Primary Care; Visit Provider Student in an Organized Health Care Education/Training Program
DX: Z21 Asymptomatic human immunodeficiency virus [HIV] infection status (principal); Z11.1 Encounter for screening for respiratory tuberculosis; Z20.2 Contact with and (suspected) exposure to infections with a predominantly sexual mode of transmission; Z13.6 Encounter for screening for cardiovascular disorders; Z13.1 Encounter for screening for diabetes mellitus
CPT/HCPCS: 36415; 80053; 80061; 82248; 83036; 85025; 86359; 86360; 86481; 86592; 86704; 86706; 86803; 87340; 87536